=== PATIENT | female | born 1980 | race African-American/Black ===

== ENCOUNTER 2021-01-01 21:29 | Emergency (ER) | payer MEDICAID ==
[~2021-01-01] VITALS: Ht 167.6 cm; Wt 72.6 kg
--- NOTE | 2021-01-01 21:45 | NUR ---
ED Nurse Note: Pt c/o bilateral eye pain/ swelling after eggs exploded in her face approx 0300. Pt ambulated into ED, pt is AAO x4.
--- NOTE | 2021-01-01 21:56 | Emergency Room Report ---
History of Present Illness General Chief Complaint: Eye Problems Source: Patient Present Illness HPI Disclaimer: Please note that this report is being documented using [employer] technology. This can lead to erroneous entry secondary to incorrect interpretation by the dictating instrument. HPI: 32-year-old female presents for eye pain and swelling. Approximately 18 hours ago she tried to microwave an egg which exploded in her face. Notes foreign body sensation in the left eye and increased lacrimation in both eyes. Reports her eyes are red and swollen. Swelling of the upper and lower lid as well. Difficulty to keep her eyes open because it hurts. Does not wear contact lenses or corrective lenses. PMH: Reviewed PSH: Reviewed Allergies: Reviewed Social Hx: Reviewed Allergies: Coded Allergies: No Known Allergies (Unverified , 01/01/21) COVID-19 Screening Contact w/high risk pt: No Experienced COVID-19 symptoms?: No COVID-19 Testing performed [employer]: No Patient History Last Menstrual Period: 12/11/20 Now: No Nursing Documentation-PMH Past Medical History: No Stated History Review of Systems All Other Systems: negative except mentioned in HPI Physical Exam Vital Signs Date Time Temp Pulse Resp B/P (MAP) Pulse Ox O2 Delivery O2 Flow Rate FiO2 01/01/21 21:43 98.2 78 15 124/68 (86) 95 Room Air General: Awake and alert, no acute distress HEENT: NC/AT. EOMI. STRICTION TO EXTRAOCULAR MOVEMENTS. PERRLA. Heavy lacrimation bilaterally. Mild edema of the upper and lower lids. Able to open her eyes though appears painful. No chemosis, no hyphema, no hypopyon. No subconjunctival hemorrhages. Wood lamp examination shows no ulcers, no dendrites, no Tran sign, no abrasions. No foreign bodies noted in the upper or lower lid. Resp: Normal work of breathing Skin: Intact. No abrasions, laceration or rash over the exposed skin MSK: Normal tone and bulk. Moving all extremities. No obvious deformity. Neuro: Awake and alert. Mentating appropriately Medical Decision Making Diagnostic Impression: Primary Impression: Chemical injury of eye ER Course 40-year-old female presents for evaluation of bilateral eye pain and swelling after an egg exploded. Likely minor chemical injury. No abrasion, ulcers or globe injury identified. Will prescribe to her lack eyedrops and she will continue to flush with ophthalmic solution as she has been. Feeling better after receiving tetracaine. Able to fully open her eyes and states her vision is at baseline. Will follow up with her PMD and referral to ophthalmology as needed. She is instructed to return with new or worsening symptoms. She understands and agrees with this treatment plan. Last Vital Signs Date Time Temp Pulse Resp B/P (MAP) Pulse Ox O2 Delivery O2 Flow Rate FiO2 01/01/21 21:43 98.2 78 15 124/68 (86) 95 Room Air Disposition: HOME, SELF-CARE Condition: Stable Scripts Ketorolac Tromethamine/Pf (ACUVAIL 0.45% OPHTH SOLUTION) 1 Each Droperette 1 EACH OP BID, #1 UNIT Prov: Miguel Morillo MD 01/01/21 Miguel Morillo MD Jan 01, 2021 21:56
[2021-01-01] MEDS ORDERED: Fluorescein Strips BOTH EYES ONE (22:00)
[2021-01-01] MEDS ORDERED: ACUVAIL 0.45%1 EACH OP (22:03)
--- NOTE | 2021-01-01 22:09 | NUR ---
ER DISCHARGE NOTE: Patient is cleared to be discharged per ERMD, pt is aao x4, on room air, with stable vital signs. pt was given dc and prescription instructions, pt was able to verbalize understanding, pt id band removed. pt is able to ambulate with steady gait. pt took all belongings.
[2021-01-01 22:11] VITALS: BP 124/68
== END 2021-01-01 22:20 | disposition home or self-care (01) ==
LOC: EMR 21:55
DX: T62.8X1A Toxic effect of other specified noxious substances eaten as food, accidental (unintentional), initial encounter (principal); T26.92XA Corrosion of left eye and adnexa, part unspecified, initial encounter; X58.XXXA Exposure to other specified factors, initial encounter; Y93.G3 Activity, cooking and baking; Y92.010 Kitchen of single-family (private) house as the place of occurrence of the external cause
CPT/HCPCS: 99282